=== PATIENT | female | born 1960 | race Caucasian/White ===

== ENCOUNTER 2017-11-22 14:06 | Emergency (ER) | payer MEDICARE, MEDICAID ==
[~2017-11-22] VITALS: Ht 160 cm; Wt 56.4 kg
[2017-11-22 14:11] VITALS: BP 126/75
== END 2017-11-22 15:20 | disposition home or self-care (01) ==
LOC: ED 15:10
DX: M79.641 Pain in right hand (principal); I10 Essential (primary) hypertension; J45.909 Unspecified asthma, uncomplicated
CPT/HCPCS: 99284